=== PATIENT | female | born 1945 | race Caucasian/White ===

== ENCOUNTER → 2016-09-20 | Outpatient (CLI) | payer OTHER ==
[2016-08-06 15:44] VITALS: BP 137/61
[2016-09-20 13:48] LABS: ALANINE AMINOTRANSFERASE 28 Units/L (12-78); ALBUMIN 3.9 g/dL (3.4-5.0); ALKALINE PHOSPHATASE 54 Units/L (46-116); ASPARTATE AMINO TRANSFERASE 18 Units/L (15-37); BLOOD UREA NITROGEN 18 mg/dL (7-18); CHLORIDE 105 mmol/L (98-107); CREATININE 1.01 mg/dL (0.55-1.02); GLUCOSE 100 mg/dL (65-99); SODIUM 144 mmol/L (136-145); TSH (3RD GENERATION) 0.234 uIU/mL (0.358-3.74); eGFR BLACK RACES > 60 (>60); eGFR NON BLACK RACES 58 (>60)
[2016-09-20 13:50] LABS: BASOPHILS # (AUTO) 0.1 X10^3/uL (0.0-0.1); BASOPHILS % (AUTO) 1.6 % (0.2-1.0); EOSINOPHILS # (AUTO) 0.5 x10^3/uL (0.0-0.2); EOSINOPHILS % (AUTO) 7.1 % (0.9-2.9); HEMATOCRIT 44.5 % (36.0-47.0); HEMOGLOBIN 14.9 g/dL (12.0-16.0); LYMPHOCYTES % (AUTO) 31.3 % (21.0-51.0); MEAN CORPUSCULAR HEMOGLOBIN 29.2 pg (27.0-34.0); MEAN CORPUSCULAR HGB CONC 33.4 g/dL (33.0-35.0); MEAN CORPUSCULAR VOLUME 87.5 fL (80.0-100.0); MEAN PLATELET VOLUME 10.7 fL (7.4-11.0); MONOCYTES # (AUTO) 0.3 x10^3/uL (0.3-0.8); MONOCYTES % (AUTO) 5.3 % (0.0-13.0); NEUTROPHILS # (AUTO) 3.6 x10^3/uL (2.2-4.8); NEUTROPHILS % (AUTO) 54.7 % (42.0-75.0); PLATELET COUNT 156 X10^3/uL (150.0-450.0); RED BLOOD COUNT 5.09 X10^6/uL (3.5-5.4); RED CELL DISTRIBUTION WIDTH 13.4 % (11.6-16.5); WHITE BLOOD COUNT 6.5 X10^3/uL (3.6-10.0)
== END ==
LOC: RAD 12:05
PROVIDERS: ATTEND Specialist
DX: Z12.31 Encounter for screening mammogram for malignant neoplasm of breast (principal); Z00.00 Encounter for general adult medical examination without abnormal findings; E11.9 Type 2 diabetes mellitus without complications
CPT/HCPCS: 36415; 77067; 80053; 84443; 85025

== ENCOUNTER 2017-07-25 12:32 | Emergency (ER) | payer OTHER ==
[2017-07-25] MEDS ORDERED: ANTIVERT TAB 25 MG PO ONE (12:51)
[2017-07-25 12:53] VITALS: BP 154/71; BMI 23.6
[2017-07-25] MEDS ORDERED: NS 1000 ML 1,000 ML IV ONE (12:54)
[2017-07-25] MEDS ORDERED: ZOFRAN INJ 4 MG VIAL ONE (12:55)
[2017-07-25] MEDS ORDERED: NS 1000 ML 1,000 ML ONE (12:55)
[2017-07-25] MEDS ORDERED: ANTIVERT TAB 25 MG ONE (12:55)
--- NOTE | 2017-07-25 12:55 | DR.GENAD ---
HPI - HPI Comment HPI Comment: SUDDEN ONSET OF SYMTOMS. PATIENT HAD NEAR SYNCOPAL OR EVEN SYNCOPAL EPISODE THAT WAS BRIEF. NO FEVER OR TRAUMA. - Complaint/Symptoms Chief Complaint Doctors Comments: DIZZINESS, VERTIGO AND ATAXIA ONE HOUR. - Nurses notes reviewed Nurses Notes Review: Yes - Source History Provided: Parent, Family Member - Mode of Arrival Mode of Arrival: Wheelchair - Timing Came on: Suddenly - Duration Duration: Constant Duration: Hours - Severity Severity: Moderate PMH - PMH Past Medical History: COPD, Coronary Artery Disease, Diabetes, Hypothyroidism, MD Past Surgical History: Yes - Family History Family Medical History: Coronary Artery Disease - Social History Do you use any recreational Drugs:: No ROS - Review of Systems Constitutional: Weakness, Fatigue. negative: Chills, Diaphoresis, Fever Eyes: Blurred Vision. negative: Eye Pain, Discharge ENTM: negative: Ear Pain, Ear Discharge, Hearing Loss, Nose Discharge, Nose Congestion, Throat Pain Respiratoy: negative: Productive Cough, Non-Productive Cough, Short of Breath, Wheezing, Hemoptysis Cardiovascular: Syncope. negative: Chest Pain, Edema, Palpitations Gastrointestinal/Abdominal: Nausea, Vomiting. negative: Abdominal Pain, Diarrhea Genitourinary: negative: Dysuria, Hematuria Neurological: Headache, Weakness, Dizziness, Other (ATAXIA) Musculoskeletal: No Symptoms Reported Integumentary: No Symptoms Reported Hematologic/Lymphatic: No Symptoms Reported Endocrine: No Symptoms Reported All Other Systems: Reviewed and Negative PE - Vital Signs Vitals: Temperature 98.6 F Pulse Rate 80 Respiratory Rate 18 Blood Pressure 154/71 O2 Sat by Pulse Oximetry 100 - General Limitations: No Limitations General Appearance: Alert - Head Head Exam: Normal Inspection - Eyes Eye exam: Normal Appearance, PERRL, EOMI. negative: Scleral Icterus, Conjunctival Injection, Nystagmus - ENT ENT Exam: Normal Oropharynx, Normal External Ear Exam, TM's Normal Bilaterally External Ear Exam: Normal External Inspection TM/Canal Exam: Bilateral Normal Nose Exam: Normal Nose Exam Mouth Exam: Normal Inspection Throat Exam: Normal Inspection - Neck Neck Exam: Normal Inspection - Chest Chest Inspection: Symmetric Chest Wall Rise - Respiratory Respiratory Exam: Normal Lung Sounds Bilat Respiratory Exam: Bilateral Clear to Auscultation - Cardiovascular Cardiovascular Exam: Regular Rate, Normal Rhythm, Normal Heart Sounds - Abdominal Exam Abdominal Exam: Normal Bowel Sounds, Soft. negative: Tenderness - Extremities Extremities Exam: Normal Inspection - Back Back Exam: Normal Inspection - Neurologic Neurological Exam: Alert, Oriented X3, CN II-XII Intact, Other (ATAXIA). negative: Normal Gait (ATAXIA), Motor Sensory Deficit - Psychiatric Psychiatric Exam: Normal Affect, Normal Mood - Skin Skin Exam: Dry MDM - Additional Information Additional Information Obtained From: Family - Differential Diagnosis Differential Diagnosis: DIZZINESS, ATAXIA, VERTIGO, HYPOKALEMIA Course - Treatment Treatment: SEE ORDERS. WHILE IN THE PROCEE OF ARRANGING ADMISSION, PATIENTS SYMTOMS RESOLVE. SHE MOVE AROUND WITHOUT DISCOMFORT. SHE C DID NOT WISH TO BE ADMITTED. WILL SEE DR. DE JESUS OUT PATIENT FOR FURTHER EVALUATION. ADMISSION DISCONTINUE AND PATIENT DISCHARGE HOME. - Reevaluation 1st: Unchanged - Consultation Consultation Comments: DISCUSS PATIENT WITH DR. DE JESUS. HE WILL ADMIT PATIENT. - Education/Counseling Education/Counseling: Patient, Family, Education Educated On: Treatment, Diagnosis ROR - Labs Reviewed Laboratory Results Reviewed?: Yes Result Diagrams: 07/25/17 13:09 07/25/17 13:09 Laboratory: WBC 5.8 X10^3/uL (3.6-10.0) 07/25/17 13:09 RBC 4.63 X10^6/uL (3.5-5.4) 07/25/17 13:09 Hgb 13.7 g/dL (12.0-16.0) 07/25/17 13:09 Hct 40.2 % (36.0-47.0) 07/25/17 13:09 MCV 86.8 fL (80.0-100.0) 07/25/17 13:09 MCH 29.5 pg (27.0-34.0) 07/25/17 13:09 MCHC 34.0 g/dL (33.0-35.0) 07/25/17 13:09 RDW 14.3 % (11.6-16.5) 07/25/17 13:09 Plt Count 170 X10^3/uL (150.0-450.0) 07/25/17 13:09 MPV 9.6 fL (7.4-11.0) 07/25/17 13:09 Neut % 60.8 % (42.0-75.0) 07/25/17 13:09 Lymph % 29.6 % (21.0-51.0) 07/25/17 13:09 Bosque % 5.6 % (0.0-13.0) 07/25/17 13:09 Eos % 2.6 % (0.9-2.9) 07/25/17 13:09 Baso % 1.4 % (0.2-1.0) H 07/25/17 13:09 Neut # 3.5 x10^3/uL (2.2-4.8) 07/25/17 13:09 Lymph # 1.7 X10^3/uL (1.3-2.9) 07/25/17 13:09 [place]que # 0.3 x10^3/uL (0.3-0.8) 07/25/17 13:09 Eos # 0.1 x10^3/uL (0.0-0.2) 07/25/17 13:09 Baso # 0.1 X10^3/uL (0.0-0.1) 07/25/17 13:09 Absolute Nucleated RBC 0.1 /100WBC 07/25/17 13:09 Sodium 136 mmol/L (136-145) 07/25/17 13:09 Corrected Sodium 141 mmol/L (136-145) 07/25/17 13:09 Potassium 3.3 mmol/L (3.5-5.1) L 07/25/17 13:09 Chloride 101 mmol/L (98-107) 07/25/17 13:09 Carbon Dioxide 26.9 mmol/L (21-32) 07/25/17 13:09 BUN 27 mg/dL (7-18) H 07/25/17 13:09 Creatinine 1.18 mg/dL (0.55-1.02) H 07/25/17 13:09 Est GFR (MDRD) Af Amer 58 (>60) L 07/25/17 13:09 Est GFR (MDRD) Non-Af 48 (>60) L 07/25/17 13:09 Glucose 308 mg/dL (65-99) H 07/25/17 13:09 POC Glucose (mg/dL) 269 mg/dL (65-99) H 07/25/17 12:33 Calcium 8.9 mg/dL (8.5-10.1) 07/25/17 13:09 Corrected Calcium TNP 07/25/17 13:09 Total Bilirubin 0.50 mg/dL (0.2-1.0) 07/25/17 13:09 AST 17 Units/L (15-37) 07/25/17 13:09 ALT 28 Units/L (12-78) 07/25/17 13:09 Alkaline Phosphatase 63 Units/L (46-116) 07/25/17 13:09 Creatine Kinase 145 Units/L (26-192) 07/25/17 13:09 CK-MB (CK-2) 2.1 ng/mL (0-4.0) 07/25/17 13:09 CK/CKMB % Calc 1.5 % (<4) 07/25/17 13:09 Troponin I < 0.02 ng/mL (0-1.5) 07/25/17 13:09 Total Protein 6.8 g/dL (6.4-8.2) 07/25/17 13:09 Albumin 3.7 g/dL (3.4-5.0) 07/25/17 13:09 Globulin 3.1 g/dL (2.5-4.5) 07/25/17 13:09 Albumin/Globulin Ratio 1.2 Ratio (1.1-2.1) 07/25/17 13:09 Specimen Type Clean catch urine 07/25/17 14:05 Urine Color Yellow (YELLOW) 07/25/17 14:05 Urine Appearance Clear (CLEAR) 07/25/17 14:05 Urine pH 7.0 (5.0 - 8.0) 07/25/17 14:05 Ur Specific Adin 1.005 (1.000-1.030) 07/25/17 14:05 Urine Protein Negative (NEGATIVE) 07/25/17 14:05 Urine Glucose (UA) 4+ (NEGATIVE) 07/25/17 14:05 Urine Ketones Negative (NEGATIVE) 07/25/17 14:05 Urine Occult Blood Negative (NEGATIVE) 07/25/17 14:05 Urine Nitrite Negative (NEGATIVE) 07/25/17 14:05 Urine Bilirubin Negative (NEGATIVE) 07/25/17 14:05 Urine Urobilinogen Normal (NORMAL) 07/25/17 14:05 Ur Leukocyte Esterase 1+ (NEGATIVE) 07/25/17 14:05 Urine RBC 0-3 /HPF (NONE SEEN) 07/25/17 14:05 Urine WBC 0-3 /HPF (NONE SEEN) 07/25/17 14:05 Ur Squamous Epith Cells Few /HPF (NEGATIVE) 07/25/17 14:05 Urine Bacteria Negative /HPF (NEGATIVE) 07/25/17 14:05 Ur Culture Indicated? No/not indicated 07/25/17 14:05 - XRAY XRAY Findings: REPORT DISCUSS WITH PATIENT. - EKG Rhythm: NSR (EKG NOTED) - Diagnosis Discharge Problem: Dizziness, Vertigo, Ataxia, Hypokalemia Syncopal episodes Qualifiers: Syncope type: unspecified Qualified Code(s): R55 - Syncope and collapse - Discharge Plan Disposition: HOME, SELF-CARE Condition: Stable Prescriptions: Acetaminophen [Tylenol Arthritis] 650 mg PO DAILY #2 tablet.er Meclizine HCl 25 mg PO TID PRN #12 tab PRN Reason: Dizziness Ondansetron [Zofran ODT 8 mg] 8 mg PO Q8H PRN #12 tab PRN Reason: Nausea/Vomiting - Follow ups/Referrals Follow ups/Referrals: [facility],None [Primary Care Provider] - 3 days - Instructions Instructions: Vertigo, [id number], Ataxia, Dizziness, [id number] Additional Instructions: RETURN TO ED IF WORSE.
[2017-07-25] MEDS ORDERED: ZOFRAN INJ 4 MG VIAL IVP ONE (13:04)
[2017-07-25 13:19] LABS: BASOPHILS # (AUTO) 0.1 X10^3/uL (0.0-0.1); BASOPHILS % (AUTO) 1.4 % (0.2-1.0); EOSINOPHILS # (AUTO) 0.1 x10^3/uL (0.0-0.2); EOSINOPHILS % (AUTO) 2.6 % (0.9-2.9); HEMATOCRIT 40.2 % (36.0-47.0); HEMOGLOBIN 13.7 g/dL (12.0-16.0); LYMPHOCYTES # (AUTO) 1.7 X10^3/uL (1.3-2.9); LYMPHOCYTES % (AUTO) 29.6 % (21.0-51.0); MEAN CORPUSCULAR HEMOGLOBIN 29.5 pg (27.0-34.0); MEAN CORPUSCULAR VOLUME 86.8 fL (80.0-100.0); MEAN PLATELET VOLUME 9.6 fL (7.4-11.0); MONOCYTES # (AUTO) 0.3 x10^3/uL (0.3-0.8); MONOCYTES % (AUTO) 5.6 % (0.0-13.0); NEUTROPHILS # (AUTO) 3.5 x10^3/uL (2.2-4.8); NEUTROPHILS % (AUTO) 60.8 % (42.0-75.0); PLATELET COUNT 170 X10^3/uL (150.0-450.0); RED BLOOD COUNT 4.63 X10^6/uL (3.5-5.4); RED CELL DISTRIBUTION WIDTH 14.3 % (11.6-16.5); WHITE BLOOD COUNT 5.8 X10^3/uL (3.6-10.0)
[2017-07-25 13:40] LABS: BLOOD UREA NITROGEN 27 mg/dL (7-18); CALCIUM 8.9 mg/dL (8.5-10.1); CARBON DIOXIDE 26.9 mmol/L (21-32); CHLORIDE 101 mmol/L (98-107); COR NA(FOR HYPERGLY) 141 mmol/L (136-145); CREATININE 1.18 mg/dL (0.55-1.02); SODIUM 136 mmol/L (136-145); TROPONIN I < 0.02 ng/mL (0-1.5); eGFR BLACK RACES 58 (>60); eGFR NON BLACK RACES 48 (>60)
[2017-07-25 13:44] LABS: ALANINE AMINOTRANSFERASE 28 Units/L (12-78); ALBUMIN 3.7 g/dL (3.4-5.0); ALKALINE PHOSPHATASE 63 Units/L (46-116); ASPARTATE AMINO TRANSFERASE 17 Units/L (15-37); CKMB % 1.5 % (<4); CREATINE KINASE 145 Units/L (26-192); CREATINE KINASE MB 2.1 ng/mL (0-4.0); TOTAL PROTEIN 6.8 g/dL (6.4-8.2)
--- NOTE | 2017-07-25 13:51 | CT ---
HISTORY: Dizziness, shortness of breath Study: CT chest without contrast Comparison: None Technique: Axial noncontrast images with coronal and sagittal reformats. Dose reduction procedures we re used with mA/kv adjusted for body size. This examination is limited due to the lack of intravenous contrast. Findings: Examination of the mediastinum demonstrated no evidence for mediastinal masses, enlarged mediastinal adenopathy, or enlarged hilar adenopathy to the limitations of an unenhanced examination. Evaluation of the aorta is limited due to the lack of intravenous contrast. No pleural effusions are identified. No chest wall or axillary abnormality is identified. Those portions of the upper abdominal organs vi sualized were within normal limits to the limitations of an unenhanced examination. Examination of th e lung polanco demonstrated no alveolar infiltrates or areas of consolidation. No masses, peribronchia l thickening, or bronchiectasis is identified. Best visualized on series 4, image 38 is a 6.2 mm dalton pheral pulmonary nodule which will require CT follow-up in 6 months to assess for stability. Best vis ualized on series 6, image 35 is a 4.2 mm right mid lung pulmonary nodule which will require CT follo w-up There are some chronic tree-in-bud inflammatory changes in the medial right lung base. IMPRESSION: 6.2 mm peripheral right mid lung pulmonary nodule requiring CT follow-up in 6 months to assess for st ability. 4.2 mm right mid lung pulmonary nodule which can be evaluated at 6 months also. Chronic appearing right medial basal tree-in-bud inflammatory changes, nonspecific Reported By:
--- NOTE | 2017-07-25 13:55 | CT ---
HISTORY: AMS, dizziness Study: CT brain without contrast Comparison: 08/06/2016. Technique: Multiple axial images of the brain were obtained from the skull base to the vertex without administra tion of IV contrast. Coronal and sagittal images are also reviewed. Dose reduction techniques utilize d automatic exposure control. Findings: No acute intraparenchymal hemorrhage or mass can be identified. No extra-axial fluid collections are seen. No alteration in the attenuation of the brain parenchyma can be identified to suggest acute o r subacute ischemic change. The ventricular system is symmetric and nondilated. There is mild perive ntricular microangiopathic change. The extracranial structures are grossly unremarkable. IMPRESSION: 1. No acute intracranial process can be identified. Reported By:
[2017-07-25 14:17] LABS: BILIRUBIN,URINE NEGATIVE (NEGATIVE); BLOOD/HEMOGLOBIN,URINE NEGATIVE (NEGATIVE); GLUCOSE, URINE 4+ (NEGATIVE); KETONES,URINE NEGATIVE (NEGATIVE); LEUKOCYTE ESTERASE ,URINE 1+ (NEGATIVE); NITRITES,URINE NEGATIVE (NEGATIVE); PROTEIN,URINE NEGATIVE (NEGATIVE); UROBILINOGEN,URINE NORMAL (NORMAL)
[2017-07-25 14:28] LABS: APPEARANCE,URINE CLEAR (CLEAR); BACTERIA,URINE NEGATIVE /HPF (NEGATIVE); COLOR,URINE YELLOW (YELLOW); RBC,URINE 0-3 /HPF (NONE SEEN); SQUAMOUS EPITHELIAL CELL,UR FEW /HPF (NEGATIVE)
== END 2017-07-25 16:13 | disposition home or self-care (01) ==
LOC: ER 12:39
DX: R42 Dizziness and giddiness (principal); R27.0 Ataxia, unspecified; E87.6 Hypokalemia; R55 Syncope and collapse; R94.31 Abnormal electrocardiogram [ECG] [EKG]
CPT/HCPCS: 36415; 70450; 71250; 80053; 81001; 82550; 82553; 84484; 85025; 93005; 93010; 96365; 96374; 99283; 99285; A4222; J2405